=== PATIENT | male | born 1990 | race Caucasian/White ===

== ENCOUNTER 2017-09-16 18:07 | Emergency (ER) | payer SELFPAY ==
[~2017-09-16] VITALS: Ht 175.3 cm; Wt 73.6 kg
[2017-09-16 18:10] VITALS: BP 116/74
== END 2017-09-16 19:50 | disposition left against medical advice (07) ==
LOC: ED 19:44
DX: K08.89 Other specified disorders of teeth and supporting structures (principal); Z53.21 Procedure and treatment not carried out due to patient leaving prior to being seen by health care provider

== ENCOUNTER 2018-01-05 05:30 | Emergency (ER) | payer MEDICAID, OTHER ==
[~2018-01-05] VITALS: Ht 175.3 cm; Wt 77.8 kg
[2018-01-05 05:31] VITALS: BP 133/77
[2018-01-05] MEDS ORDERED: LIDOCAINE-MPF 2%, 2ML ONE (06:23)
[2018-01-05] MEDS ORDERED: LIDOCAINE-MPF 2%, 2ML SQ ONE (06:30)
== END 2018-01-05 06:58 | disposition left against medical advice (07) ==
LOC: ED 06:30
DX: L02.01 Cutaneous abscess of face (principal)
CPT/HCPCS: 99281